=== PATIENT | male | born 1975 | race Caucasian/White ===

== ENCOUNTER 2019-06-14 12:41 | Emergency (ER) | payer OTHER, SELFPAY ==
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
[2019-06-14] MEDS ORDERED: Ondansetron PF 4 MG/2 ML Vial ONE (14:17)
[2019-06-14] MEDS ORDERED: Ketorolac Tromethamine 30 MG/ML VIAL ONE (14:17)
[2019-06-14] MEDS ORDERED: Fentanyl 100 MCG/2 ML VIAL ONE (14:17)
[2019-06-14] MEDS ORDERED: Adacel (T-DAP) 0.5 ML SYRINGE ONE (14:17)
== END 2019-06-14 14:47 | disposition home or self-care (01) ==
LOC: ERS 12:41
DX: S01.81XA Laceration without foreign body of other part of head, initial encounter (principal); S01.511A Laceration without foreign body of lip, initial encounter; F17.210 Nicotine dependence, cigarettes, uncomplicated; Z86.73 Personal history of transient ischemic attack (TIA), and cerebral infarction without residual deficits
CPT/HCPCS: 70450; 70486; 72125; 90715; J0690; J1885; J2405; J3010